=== PATIENT | male | born 1990 | race Two or more races ===

== ENCOUNTER 2018-12-04 21:02 | Inpatient (IN) | payer OTHER ==
--- NOTE | 2018-12-04 21:12 | ED ---
Neurological HPI - HPI Summary HPI Summary: This pt is a 28 y/o male [facility] for neurology consult after his knees gave out and pt fell this morning. Pt has hx of MS and has not been taking his QD injection medication since 2017. Pt is still taking gabapentin for MS. This morning pt's knees gave out falling on his buttocks and sliding down the stairs 12 steps down. He had head strike on the left side of his head. Denies LOC. Pt c/o pain to left side of head, bilateral leg pain, left arm pain. Denies pain to his neck or back. EMS arrived and assisted the pt off the floor and onto stretcher. Pt was taken to [facility] where he had a brain CT, cervical spine CT, hip and pelvis XR, femur XR , and left forearm XR and all resulted negative. Pt was transferred to [facility] ED for an MRI. Dr. Timmons is aware of pt coming to the ED. - History of Current Complaint Stated Complaint: NEURO PER EMS Hx Obtained From: Patient, Medical Records - from [facility] Onset/Duration: Started hours ago Timing: Sudden Onset Onset Severity: Moderate Neurological Deficit Location: RLE, LLE Character: Other: - knees gave out Aggravating: Unknown Alleviating: Unknown Associated Signs and Symptoms: Positive: Pain - bilateral leg pain, left arm pain, head pain. Negative: Loss of Consciousness, Fever Related Hx: Medication Non-Comliant - with hx of MS - Allergy/Home Medications Home Medications: Home Medications Albuterol HFA INHALER* [Ventolin HFA Inhaler*] 2 inh PO QID PRN 12/04/18 [ History Confirmed 12/04/18] Gabapentin 1,200 mg PO BID 12/04/18 [History Confirmed 12/04/18] Glatiramer Acetate [Glatopa] 20 mg SC DAILY 12/04/18 [History Confirmed 12/04/18 ] PMH/Surg Hx/FS Hx/Imm Hx Endocrine/Hematology History: Denies: Hx Diabetes Neurological History: Reports: Other Neuro Impairments/Disorders - MS - Family History Known Family History: Negative: Cardiac Disease, Hypertension - Social History Alcohol Use: None Substance Use Type: Reports: None Review of Systems Negative: Fever Musculoskeletal: Other - POSITIVE: left leg pain, right leg pain, left arm pain Negative: Other - NEGATIVE: neck pain or back pain Neurological: Other - POSITIVE: head pain All Other Systems Reviewed And Are Negative: Yes Physical Exam - Summary Physical Exam Summary: Appearance: The patient is well-nourished in no acute distress and in no acute pain. Skin: The skin is warm and dry. Abrasions on thighs. HEENT: The head is normocephalic and atraumatic. The pupils are equal and reactive. The conjunctivae are clear and without drainage. Nares are patent and without drainage. Mouth reveals moist mucous membranes and the throat is without erythema and exudate. The external ears are intact. The ear canals are patent and without drainage. The tympanic membranes are intact. Neck: the neck is supple with full range of motion and non-tender. There are no carotid bruits. There is no neck vein distension. Respiratory: Chest is non-tender. Lungs are clear to auscultation and breath sounds are symmetrical and equal. Cardiovascular: Heart is regular rate and rhythm. There is no murmur or rub auscultated. There is no peripheral edema and pulses are symmetrical and equal. Abdomen: The abdomen is soft and non-tender. There are normal bowel sounds heard in all four quadrants and there is no organomegaly palpated. Musculoskeletal: There is no back tenderness noted. Extremities are non-tender with full range of motion. Neurological: Patient is alert and oriented to person, place and time. The patient has symmetrical motor strength in all four extremities. Cranial nerves are grossly intact. Deep tendon reflexes are symmetrical and equal in all four extremities. Psychiatric: The patient has an appropriate affect and does not exhibit any anxiety or depression. Triage Information Reviewed: Yes Vital Signs On Initial Exam: Initial Vitals Temp Pulse Resp BP Pulse Ox 97.6 F 55 18 121/64 97 12/04/18 21:11 12/04/18 21:11 12/04/18 21:11 12/04/18 21:11 12/04/18 21:11 Vital Signs Reviewed: Yes Course/Dx - Course Course Of Treatment: Mr. Morton was stable on arrival from [place]. He was nontoxic in appearance although looked somewhat depressed. Dr. Sethi was contacted for the hospitalist. The plan is for Mr. Morton to get an MRI scan in the morning. - Diagnoses Provider Diagnoses: Multiple sclerosis exacerbation - Physician Notifications Discussed Care Of Patient With: Madi Sethi - hospitalist Time Discussed With Above Provider: 21:02 Instructed by Provider To: Admit As Inpatient Discharge - Sign-Out/Discharge Documenting (check all that apply): Patient Departure - Admit to [facility] Patient Received Moderate/Deep Sedation with Procedure: No - Discharge Plan Condition: Stable Disposition: ADMITTED TO [facility] Referrals: No Primary Care Phys,NOPCP [Primary Care Provider] - - Billing Disposition and Condition Condition: STABLE Disposition: Admitted to [facility] - Attestation Statements Document Initiated by Subhash: Yes Documenting Scribe: Evelin Proctor Provider For Whom Subhash is Documenting (Include Credential): Jase Bonner MD Scribe Attestation: Evelin Urias, scribed for Jase Bonner MD on 12/04/18 at 2152. Scribe Documentation Reviewed: Yes Provider Attestation: The documentation as recorded by the Evelin smith accurately reflects the service I personally performed and the decisions made by me, Jase Bonner MD Status of Scribe Document: Viewed
[2018-12-04] MEDS ORDERED: Senna TAB PO PRN (22:53)
[2018-12-04] MEDS ORDERED: Acetaminophen TAB* 325 MG PO PRN (22:53)
[2018-12-04] MEDS ORDERED: methylPREDNISolone 125 MG* 2 ML VIAL IV ONE (23:03)
[2018-12-04] MEDS ORDERED: Albuterol HFA INHALER* 8 gm MDI INH PRN (23:04)
[2018-12-04] MEDS ORDERED: methylPREDNISolone SOD SUCC* 1,000 MG in NS 0.9% 250 ML* 250 ML IVPB ONE (23:30)
[2018-12-05] MEDS: Ketorolac INJ* 15 MG/ML 1 ML VIAL IV PUSH PRN ×3 (01:39→18:12)
--- NOTE | 2018-12-05 05:00 | HP ---
AMENDED REPORT NOW INCLUDES DESIGNATED COSIGNER HISTORY AND PHYSICAL: DATE OF ADMISSION: 12/04/18 ATTENDING PHYSICIAN: Dr. Darrel Sethi * (dictated by DAVID Emery). OUTPATIENT NEUROLOGIST: Dr. Eli at [facility]. PRIMARY CARE PROVIDER: Dr. Malcolm at [facility] [place]. CHIEF COMPLAINT: Weakness x3 days and fall. HISTORY OF PRESENT ILLNESS: Kalen Morton is a 28-year-old white male with past medical history significant for asthma and MS, who presented to the emergency department in [place] due to a fall down 12 steps. The patient reports that he has been feeling progressively weak in his lower extremities, worsening over the last 3 days, which led to a fall down the staircase when he felt like his knees were buckling under him. There were other times in the last several days where his knees have been giving out under him. Due to lack of neurology coverage and MRI at [place], he was then transferred to the emergency department here at [facility]. The patient reports he did have a head trauma when he fell down the steps, but denies loss of consciousness. He felt like he was having some black spots in his vision, but that quickly resolved. He notes pain to his left hip and thigh and pain to his right knee since the fall. After the fall and leading up to his ED presentation, he denies difficulty breathing, fevers, chills, chest pain, loss of bowel or bladder control, abdominal pain, nausea, or vomiting. Over the last 3 days, he does endorse at times having some white spots in his vision and blurred vision. He states this happening intermittently and does not notice any relieving or aggravating events to these symptoms. He additionally states that he has not been taking his prescribed MS medications since either May or June of this year including glatiramer, vitamin B-complex, and vitamin D supplements. In the emergency room at [facility], the patient reportedly had a CT brain, CT cervical spine, x-ray of left forearm, x-ray of hips, x-ray of pelvis, and x-ray of bilateral femurs, which were reportedly read by the radiologist as negative. Lab data from the emergency department in [place], white blood cell count 5.9, hemoglobin 15.4, hematocrit 45.5, platelets 341, eosinophils 7.9, glucose 97, BUN 13, creatinine 0.9. Sodium 140, potassium 4.0 , chloride 106, carbon dioxide 26, calcium 9, magnesium 1.9, protein 8.1, albumin 4.3, globulin 3.8, bilirubin 0.6, AST 27, ALT 31, alk phos 61. Urinalysis negative with urine pH of 6.0. At this facility, the patient arrived to the emergency department with vital signs of temp 97.6, heart rate 55 , respiratory rate 18, oxygen saturation 97% on room air, and blood pressure of 121/64. The emergency department physician Dr. Packer contacted neurologist manager social responsibility, Dr. Timmons, who recommended admission. Therefore, the hospitalist team was contacted for evaluation for admission. PAST MEDICAL HISTORY: 1. Multiple sclerosis. 2. Asthma. 3. Environmental allergies. 4. Depression/anxiety. PAST SURGICAL HISTORY: 1. Adenoidectomy. 2. Tonsillectomy. HOME MEDICATIONS: 1. Gabapentin 1200 mg p.o. t.i.d. 2. Vitamin B supplement (nonadherent). 3. Vitamin D supplement (nonadherent). 4. Ventolin inhaler 2 puffs inhaled q.i.d. p.r.n. wheezing and shortness of breath. 5. Glatiramer 20 mg subcu daily (nonadherent). ALLERGIES: No known drug allergies. FAMILY HISTORY: Mother with asthma, is living in her 50s. Father is known to be healthy. The patient notes his paternal grandfather has had 2 strokes and an IN. SOCIAL HISTORY: The patient is with 2 children and 1 step-child. He lives with his and children in [place], [place]. He works at [employer]. He endorses occasional marijuana use. He has smoked cigarettes for approximately 1 year but now vapes, and denies alcohol use. REVIEW OF SYSTEMS: An 11-point review of systems was complete and all pertinent positives and negatives are above in the HPI. All other systems are negative. PHYSICAL EXAMINATION GENERAL: Thin, young white male, lying upright in the hospital bed, appearing comfortable in no acute distress. Mother at bedside. HEENT: Head: Normocephalic, atraumatic. Minimal tenderness to palpation to the left parietal region. Eyes: PERRL. Sclerae anicteric. EOMI. Visual acuity 20/20. No nystagmus. Visual shah full to confrontation. ENT: Mucous membranes are moist. NECK: Supple without JVD. LUNGS: Clear to auscultation throughout. CARDIO: Regular rate and rhythm without murmurs, rubs, or gallops. ABDOMEN: Normoactive bowel sounds x4 quadrants. No hepatosplenomegaly. Soft, nontender, nondistended. EXTREMITIES: No clubbing, cyanosis, or edema. MUSCULOSKELETAL: Range of motion to bilateral knees, ankles full. No tenderness to palpation throughout. No tenderness to palpation of spinous processes of cervical spine, thoracic spine or lumbar spine. Range of motion of neck is within normal limits. NEUROLOGIC: 5/5 strength in all extremities including belt measurer strength, dorsiflexion, plantar flexion, hip and knee flexion and extension, and elbow flexion and extension. Sensation to light touch diminished to left lower extremity and right upper extremity per the patient. Face is symmetrical. Sensation to light touch intact and equal throughout face. Gait is slow but within normal limits. Peripheral weakness with tip toe walk and duck walk. The patient is able to squat. Negative Romberg sign. The patient is alert and oriented x3. Minimal ataxia in lower extremities with heel-malagon. No ataxia with [id number]. SKIN: Diffuse mild ecchymosis to left lateral thigh. Otherwise, warm, dry, and intact. DIAGNOSTIC STUDIES/LAB DATA: No lab data was collected in the emergency department at this facility, but please see above for lab data collected at [facility]. As described above, the imaging was read as negative and the disk from [place] has been obtained. EKG obtained in [place]: Normal sinus rhythm at 55 beats per minute, isolated T- wave inversion in V1, otherwise no ST depressions or elevations. ASSESSMENT AND PLAN: Kalen Morton is a 28-year-old white male with past medical history significant for MS and asthma, who presents to the emergency department with 3 days of progressive weakness and a fall. The patient will be admitted in [facility] for: 1. Progressive weakness. This is likely due to a multiple sclerosis exacerbation. Dr. Timmons has been notified regarding this patient. He recommends MRI of the brain with and without contrast and MRI of the cervical spine with and without contrast. He additionally recommends 1 g of Solu-Medrol to be administered. He will evaluate the patient in the morning. The patient does exhibit some peripheral strength deficits on his neurological exam. He will be admitted to the medical floor. He has not been adherent to his home multiple sclerosis medications. I will hold his prescribed glatiramer at this point, further restart to be determined by Dr. Timmons. It would be beneficial to have records from his outpatient neurologist's office and I have placed an order to obtain records. 2. Fall. The patient reportedly fell down approximately 12 steps. He does endorse head trauma and reportedly his CT brain and cervical spine and x-rays of the hips, pelvis, bilateral femurs, and left forearm were negative at [place]. These images will be uploaded to our EMS. The patient does still have some pain in his left hip and right knee. I will give p.r.n. Tylenol and p.r.n. Toradol for this. I have ordered Physical Therapy to evaluate the patient. Otherwise, his pain does seem tolerable at this point. His fall appears to be secondary to his weakness, which is likely due to multiple sclerosis exacerbation. 3. History of asthma. Continue his p.r.n. Ventolin. 4. FEN: The patient will have a regular unrestricted diet. Electrolytes are within normal limits. 5. DVT risk assessment: The patient has a DVT risk score of 0. I will order SCDs. 6. Code Status: The patient is a full code. TIME SPENT: Approximately 55 minutes was spent on this admission, approximately half this time was spent at bedside. This case has been reviewed with my attending Dr. Darrel Sethi, and he agrees with this assessment and plan of care. DAVID EMERY [id number]/[facility] #: [id number] [facility] HOSPITALMaribell
[2018-12-05 06:43] LABS: ABS Lymphocytes 0.8 10^3/ul (1.0-4.8); ABS Monocytes 0.1 10^3/ul (0-0.8); Eosinophil % 0.2 %; Hematocrit 45 % (42-52); Hemoglobin 15.7 g/dL (14.0-18.0); Lymphocyte % 10.1 %; Mean Corpuscular HGB Conc 35 g/dL (31-36); Mean Corpuscular Hemoglobin 30 pg (27-31); Mean Corpuscular Volume 86 fL (80-94); Mean Platelet Volume 7.6 fL (7.4-10.4); Nucleated Red Blood Cells % 0.1; Platelet Count 307 10^3/uL (150-450); Red Blood Count 5.21 10^6 /uL (4.18-5.48); Red Cell Distribution Width 13 % (10-15); White Blood Count 7.9 10^3/uL (3.5-10.8)
[2018-12-05 07:02] LABS: Albumin 4.4 g/dL (3.2-5.2); Albumin/Globulin Ratio 1.5 (1-3); BUN/Creatinine Ratio 18.4 (8-20); Calcium 9.9 mg/dL (8.6-10.3); EGFR African American 108.7 (>60); EGFR Non-African American 89.8 (>60); Potassium 3.9 mmol/L (3.5-5.0); Total Bilirubin 0.9 mg/dL (0.2-1.0); Total Protein 7.4 g/dL (6.4-8.9)
[2018-12-05 07:22] LABS: TSH (Thyroid Stimulating Horm) 0.6 mcIU/mL (0.34-5.60)
[2018-12-05] MEDS: Gabapentin CAP(*) 400 MG PO SCH ×4 (08:50→21:58)
[2018-12-05] MEDS ORDERED: Gadoteridol* (CONTRAST) 279.3 MG/ML 10 ML IV ONE (11:41)
--- NOTE | 2018-12-05 12:35 | CONS ---
CC: Dr. Malcolm; Dr. Eli * CONSULTATION REPORT: DATE OF CONSULT: 12/05/18 PRIMARY CARE PROVIDER: Dr. Malcolm at [facility]. PRIMARY NEUROLOGIST: Dr. Eli at [facility]. MY ATTENDING PHYSICIAN IN THE HOSPITAL: Dr. Aaron Timmons (report dictated by Scooter Sharpe NP). REASON FOR NEUROLOGICAL CONSULTATION: Evaluation of weakness, possible MS flare. CHIEF COMPLAINT: 1. Weakness. 2. Fall. HISTORY OF PRESENTING ILLNESS: Mr. Morton is a 28-year-old male patient who is diagnosed with MS about 10 years ago. He initially was started on Avonex and then transferred over to glatiramer. He says that he has not taken the shot of his glatiramer since May. On his initial presentation of MS, he had significant visual symptoms. He was, per him, diagnosed with optic neuritis. He states that he has had 2 other flares for his MS history requiring IV steroids in the past and hospitalization. He states that he has also at times been forgetful taking his medications and he admitted that he has not taken his glatiramer due to the injection site pain since May. He came into our hospital from [facility] yesterday complaining of having a 3-day history of weakness affecting mostly his right lower extremity, which is typical he says of his flares. He says his right leg is always a little bit weaker than his left. He normally does have numbness and tingling. He does not elicit that with this flare. He says that he has also been having some white spots and black spots in his visions at times. It has been intermittent and at times , he has been having some blurry vision but no loss of vision at this point. He states that over the last 3 days, his right leg has been giving out more. He has been feeling progressively weaker over the last 3 days. He took a fall yesterday. He was trying to go down from stairs when he went to put his right leg down on the stair and it had given out and he fell. At that point, he states that he was concerned and he presented to [facility] ER. He denied having any back pain. No bowel or bladder control issues. No loss of bowel or bladder control. He does state that he has had some intermittent bladder issues over the last year, but no new incontinences have been reported. He denies having any pain at this point. He says when he fell he did not lose consciousness. He denied having any other weaknesses in his upper extremity. He denied any weakness in his face. No numbness or tingling in his face. He does state that over the last month, he has been feeling very fatigued and feeling as if he has been having a hard time concentrating. There was concern at [facility] that this could represent an MS flare. They were unable to obtain MRIs at that point. Dr. Timmons was consulted last night and it was felt that he should be transferred to [facility], where there was inpatient Neurology and where the patient could undergo MRI scanning and Neurology consult. Because of this, we were asked to evaluate and consult. PAST MEDICAL HISTORY: Significant for: 1. MS, diagnosed about 10 years ago. 2. Optic neuritis. 3. Asthma. 4. Depression. 5. Anxiety. PAST SURGICAL HISTORY: He has had a history of tonsillectomy and adenoidectomy. CURRENT MEDICATIONS: Include: 1. Vitamin D 1000 units p.o. daily. 2. Vitamin B one tablet daily. 3. Gabapentin 1200 mg p.o. t.i.d. 4. Glatiramer 20 mg subcu daily. 5. Albuterol 2 puffs inhaled q.i.d. as needed. ALLERGIES TO MEDICATIONS: Include no known drug allergies. FAMILY HISTORY: His mother has asthma. His father is healthy. SOCIAL HISTORY: He is . He has 3 children; 1 stepson, 2 daughters. Does not drink alcohol. He does use of a vape pen. Denies any illicit drug use. He works at [employer]. REVIEW OF SYSTEMS: There is no documented fever. He denied having any significant weight change. There was no double vision. He denies having any ear discharge. Denies having any rhinorrhea. There is no sore throat, no thyroid enlargement. Denied having any chest pain. There is no orthopnea. No nocturnal dyspnea. There is no abdominal pain. No nausea, no vomiting. No dysuria, no frequency. No seizure, no loss of consciousness. No pruritus and no skin ulcerations. Review of 14 systems completed, all others negative. PHYSICAL EXAM: Vital Signs: Blood pressure 105/50, pulse 51, respirations 16, his O2 saturation was 96%, temperature 97.9. General: At this time, Mr. Morton is a 28- year-old male patient, he is sitting in the hospital bed. He does not appear to be in any acute distress. He appears to be well nourished and well developed. HEENT: Head is atraumatic and normocephalic. Eyes: His EOMs were intact. His sclerae were anicteric and not pale. Neck: Supple. Throat: Oral mucosa appears to be dry. No oropharyngeal erythema. Heart: Sounds S1, S2. No murmurs, rubs, or gallops. Regular rate and rhythm. Lungs: Clear to auscultation bilaterally. No wheezes, rales, or rhonchi. Abdomen: Soft, flat , and nontender. Bowel sounds are present. Extremities: He had no edema. Pulses were 2+ throughout. Neurologically, again he is awake, he is alert, he is oriented x3. Again, pupils were equal and reactive to light. EOMs were intact. Visual shah were intact to confrontation. He had no nystagmus. His face was symmetric bilaterally. Sensation was intact bilaterally. Hearing was intact bilaterally. His palate was symmetric. Tongue was midline. His SCM and trapezius were 5/5 strength. He had no noted at this point. On motor exam, he did have 5/5 strength in the upper extremities with normal tone and bulk. He had 5/5 strength at the triceps, biceps and 5/5 strength bilaterally with finger abduction and adduction. The lower extremities had 5/5 strength with plantar and dorsiflexion, leg extension, leg flexion and at the hip flexor on the left lower extremity. However, on the right lower extremity at plantar flexion, he was 3/5; with dorsiflexion, he was 3/5; with leg extension 4/5, leg flexion 4/5; with the hip flexor, he was 4/5. He had normal bulk and tone to the lower extremities. Sensation: Again, at the upper extremities was intact bilaterally to light touch. The lower extremities was intact bilaterally to light touch. Deep tendon reflexes: He was 3+ at the ankle, 3+ at the patella, 3+ at the biceps, 3+ at the triceps and he was 3+ at the brachioradialis. Eventually that was going down. [id number] was intact bilaterally. Gait: I had him walk with a walker. There is noted weakness and mild circumduction to the right lower extremity. His Romberg was negative. Skin: Grossly intact. DIAGNOSTIC STUDIES/LAB DATA: He had a WBC of 7.9, RBC of 5.21, hemoglobin 15.7 , hematocrit of 45, platelet count of 307. His sodium was 138, potassium was 3.9, chloride of 105, bicarb 25, BUN 18, creatinine 0.98, glucose 175, calcium 9.9. Total bili 0.9, AST 23, ALT 22, alk phos 53. TSH was normal. He had several imaging studies in an outside hospital, which all I have the reports available to me at this point. We are attempting to get the CD loaded. EKG, sinus bradycardia with incomplete right bundle-branch block, rate of 55, no previous for comparison. CT brain without IV contrast was negative again per report. Pelvis 2 views negative per report. Femur x-ray again negative per report. Forearm x-ray negative per report and cervical spine CT negative per report. Old medical records were reviewed. ASSESSMENT AND PLAN: Mr. Morton is a 28-year-old male patient coming in to [facility] with complaint of progressive lower extremity weakness bilaterally with the fall yesterday. The weakness has been going on for 3 days. On exam today, he is notably weak in his right lower extremity. He does have some hyperreflexia but it is bilateral and equal. He was admitted for concerns of a multiple sclerosis flare. My recommendations going forward are: 1. Multiple sclerosis with presumable flare. At this point, he did receive 1 dose of Solu-Medrol. He is due to go for his MRIs of the brain and cervical spine at 10 o'clock this morning, which I agree with. We are doing this with and without contrast. If there is evidence of flare on MRI imaging, then I certainly would continue with Solu-Medrol 1 g IV for minimally 3 days. Also, it would be helpful to get records from his neurologist, which has been requested by the primary team already. Long-term, he will need to go back on possibly his Copaxone or another MS agent, but I would defer that to his primary neurologist. I would recommend physical therapy and occupational therapy evaluations for the patient and again, we will await further recommendations for the MRI. 2. Asthma, appears to be stable. We will defer to primary team. 3. Depression and anxiety. Continue with supportive care. Defer to primary team. 4. DVT prophylaxis. Defer to the primary team. 5. Code status. Full code. 6. Fluids, electrolytes, nutrition. He can have a regular diet. TIME SPENT ON CONSULT: Sixty minutes; greater than half the time was spent face -to- face with the patient obtaining my history and physical, other half the time was spent going over the plan of care with the patient. I did discuss the plan of care with my attending, Dr. Timmons; he was in agreement. SCOOTER SHARPE, STEM SETTER [id number]/[facility] #: [id number] [place]
[2018-12-05] MEDS: Cholecalciferol TAB* 1000 UNITS PO SCH (12:37)
[2018-12-05] MEDS: Vitamin B Complex TAB PO SCH (12:37)
--- NOTE | 2018-12-05 15:17 | PN ---
Subjective Date of Service: 12/05/18 Interval History: Discussed plan with Petey Sharpe [employer]. Per MRI results patient will need Solumdrol 1 gram daily for at least today and tomorrow. Assessed patient as bedside. Discussed MRI results and plan with patient who stated understanding. We also discussed medication compliance and patient states he initially (back in May or June) kept forgetting to take him medications and then he forgot so much he completely forget to take them at all. Patient reports bilateral leg pain which he attributes to fall and MS. Report bilateral knee pain with right worse than left which again he attributes to MS. He denies visual change, headache, dizziness, weakness. Objective Active Medications: Acetaminophen (Tylenol Tab*) 650 mg PO Q4H PRN PRN Reason: FEVER/PAIN Albuterol (Ventolin Hfa Inhaler*) 2 puff INH QID PRN PRN Reason: WHEEZING Cholecalciferol (Vitamin D Tab*) 1,000 units PO DAILY [facility] Last Admin: 12/05/18 12:37 Dose: 1,000 units Gabapentin (Neurontin Cap(*)) 1,200 mg PO BID [facility] Last Admin: 12/05/18 08:50 Dose: 1,200 mg Methylprednisolone Sodium Succinate 1,000 mg/ Sodium Chloride 250 mls @ 250 mls /hr IVPB DAILY [facility] Stop: 12/07/18 15:29 Ketorolac Tromethamine (Toradol Inj*) 15 mg IV PUSH Q6H PRN PRN Reason: PAIN Last Admin: 12/05/18 12:36 Dose: 15 mg Senna (Senokot Tab*) 1 tab PO BID PRN PRN Reason: CONSTIPATION Vitamin B Complex/Vitamin E (B Complex-50*) 1 tab PO DAILY [facility] Last Admin: 12/05/18 12:37 Dose: 1 tab Vital Signs - 8 hr 12/05/18 12/05/18 12/05/18 07:15 08:00 08:50 Temperature 97.6 F Pulse Rate 60 Respiratory 16 16 16 Rate Blood Pressure 98/47 (mmHg) O2 Sat by Pulse 94 Oximetry 12/05/18 12/05/18 12:25 12:38 Temperature 97.0 F Pulse Rate 65 Respiratory 12 18 Rate Blood Pressure 113/62 (mmHg) O2 Sat by Pulse 97 Oximetry Oxygen Devices in Use Now: None Appearance: Comfortable, NAD Eyes: No Scleral Icterus, PERRLA Ears/Nose/Mouth/Throat: Clear Oropharnyx, Mucous Membranes Moist Neck: NL Appearance and Movements; NL JVP Respiratory: Symmetrical Chest Expansion and Respiratory Effort, Clear to Auscultation Cardiovascular: NL Sounds; No Murmurs; No JVD, RRR, No Edema Abdominal: NL Sounds; No Tenderness; No Distention Lymphatic: No Cervical Adenopathy Extremities: No Edema, No Clubbing, Cyanosis Skin: No Rash or Ulcers Neurological: Alert and Oriented x 3, NL Muscle Strength and Tone Nutrition: Taking PO's Result Diagrams: 12/05/18 06:29 12/05/18 06:29 Additional Lab and Data: Laboratory Results - last 24 hr 12/05/18 12/05/18 06:29 06:29 WBC 7.9 RBC 5.21 Hgb 15.7 Hct 45 MCV 86 MCH 30 MCHC 35 RDW 13 Plt Count 307 MPV 7.6 Neut % (Auto) 88.6 Lymph % (Auto) 10.1 [place] % (Auto) 0.8 Eos % (Auto) 0.2 Baso % (Auto) 0.3 Absolute Neuts (auto) 7.0 Absolute Lymphs (auto) 0.8 L Absolute Monos (auto) 0.1 Absolute Eos (auto) 0.0 Absolute Basos (auto) 0.0 Absolute Nucleated RBC 0.0 Nucleated RBC % 0.1 Sodium 138 Potassium 3.9 Chloride 105 Carbon Dioxide 25 Anion Gap 8 BUN 18 Creatinine 0.98 Est GFR ( Amer) 108.7 Est GFR (Non-Af Amer) 89.8 BUN/Creatinine Ratio 18.4 Glucose 175 H Calcium 9.9 Total Bilirubin 0.90 AST 23 ALT 22 Alkaline Phosphatase 53 Total Protein 7.4 Albumin 4.4 Globulin 3.0 Albumin/Globulin Ratio 1.5 TSH 0.60 Microbiology and Other Data: . Diagnostic Imaging: COMPARISONS: MRI of the brain dated December 05, 2018 FINDINGS: BRAIN AND SPINAL CORD: As noted on the MRI of the brain, there is a lesion of the cervicomedullary junction. Additionally, there is a 0.4 cm focus of elevated T2 signal within the left cervical cord opposite of C3. There is a 0.4 cm lesion of the left cervical cord opposite of C5. There is a 0.2 cm lesion of the anterior cervical cord centrally opposite of C6-C7. There is a 0.3 cm lesion of the right posterior cervical cord opposite of C7-T1. There is no appreciable associated abnormal enhancement. ALIGNMENT: There is straightening of the normal cervical lordosis. The alignment is otherwise normal. VERTEBRAL BODIES: The bones are normal in signal intensity. JOINTS: There is no subluxation or dislocation. MUSCULATURE: Unremarkable. INTERVERTEBRAL DISCS: The intervertebral discs are normal in height and T2 signal AXIAL IMAGES: C2-C3: There is no disc herniation, spinal stenosis, or neuroforaminal narrowing. C3-C4: There is no disc herniation, spinal stenosis, or neuroforaminal narrowing. C4-C5: There is no disc herniation, spinal stenosis, or neuroforaminal narrowing. C5-C6: There is no disc herniation, spinal stenosis, or neuroforaminal narrowing. C6-C7: There is no disc herniation, spinal stenosis, or neuroforaminal narrowing. C7-T1: There is no disc herniation, spinal stenosis, or neuroforaminal narrowing. SOFT TISSUES: The visualized soft tissues of the neck are unremarkable. OTHER: None. IMPRESSION: 1. THERE ARE MULTIPLE LESIONS OF THE CERVICAL CORD CONSISTENT WITH DEMYELINATING PLAQUE GIVEN THE HISTORY OF MULTIPLE SCLEROSIS. 2. THERE IS NO ASSOCIATED ABNORMAL ENHANCEMENT TO SUGGEST ACTIVE INFLAMMATION. Order Information: MRI BRAIN W/WO FINDINGS: HEMORRHAGE/INFARCT: There is no hemorrhage or acute infarct. MASSES/SHIFT: There is no mass or shift. EXTRA-AXIAL SPACES/MENINGES: There are no extra-axial fluid collections. SULCI AND VENTRICLES: The sulci and ventricles are normal in size and position for the patient's stated age. CEREBRUM: There is multifocal and confluent elevated T2/FLAIR signal in the periventricular and subcortical white matter, including lesions are perpendicular to the corpus callosum consistent with Levine's fingers. There is associated T1 signal abnormalities with multiple lesions. There is associated enhancement scattered throughout the cerebral hemispheres bilaterally associated with these lesions BRAINSTEM: There is elevated T2/FLAIR signal within the left cerebral peduncle, within the left anterior joaquina, and within the cerebellar peduncles bilaterally. There is a 0.8 x 0.7 x 1.2 cm lesion of the cervicomedullary junction to the left of midline. There is enhancement associated with the left cerebral peduncle lesion. CEREBELLUM: Elevated T2/FLAIR signal within the cerebral hemispheres bilaterally at the junction with the peduncles. There is minimal associated enhancement. The cerebellar tonsils are normal in size and position. SELLA: The sella is normal. PINEAL: The pineal region is clear. CP ANGLE/TEMPORAL BONES: The labyrinthine structures are grossly normal. VESSELS: Normal flow-voids are noted within the visualized vertebral vasculature. DIFFUSION ABNORMALITIES: There are no diffusion abnormalities. PARANASAL SINUSES/MASTOIDS: There is a mucous retention cyst of the right maxillary sinus. ORBITS: The orbits are unremarkable. BONES AND SOFT TISSUE: No bone or soft tissue abnormalities are noted. OTHER: None IMPRESSION: 1. THERE ARE EXTENSIVE WHITE MATTER LESIONS THROUGHOUT THE CEREBRAL HEMISPHERES , BRAINSTEM, AND CEREBELLUM MOST CONSISTENT WITH DEMYELINATING PLAQUE GIVEN THE HISTORY OF MULTIPLE SCLEROSIS. 2. THERE IS ENHANCEMENT ASSOCIATED WITH MANY OF THESE LESIONS CONSISTENT WITH ACTIVE INFLAMMATION. Assess/Plan/Problems-Billing Assessment: 28 yr old with hx of MS who presented to ED with weakness and falls - Patient Problems (1) Multiple sclerosis Comment: - MRI consistent with MS exacerbation per Neurology, therefore, recommending Solumedrol 1 gram daily for today or tomorrow then reassess - Discussed restarting other MS medications and we will hold off at this point as he is in a exacerbation (2) Fall Comment: - Reported to have fallen down 12 steps. - Imaging negative. - Physical therapy evaluating. - Cont Toradol and Tylenol - Neuro checks Q 4 given reported head injury with no LOC (3) Asthma Comment: - Cont Ventolin prn for sob and wheezing (4) Depression Comment: - Has hx of depression and anxiety - Currently on no home medication for this, therefore, patient should follow up with PCP (5) DVT prophylaxis Comment: - SCDs Status and Disposition: Inpatient for IV steroids. Attending: Adelina Akers
[2018-12-05] MEDS ORDERED: Acetaminophen TAB* 325 MG PO PRN (15:28)
[2018-12-05] MEDS: methylPREDNISolone SOD SUCC* 1,000 MG in NS 0.9% 250 ML* 250 ML IVPB SCH (16:17)
[2018-12-06] MEDS: Ketorolac INJ* 15 MG/ML 1 ML VIAL IV PUSH PRN ×3 (00:14→16:47)
--- NOTE | 2018-12-06 09:13 | PN ---
Subjective Date of Service: 12/06/18 Length of Stay: 2 Days Interval History: Pt examined today at the bedside. He states that he is feeling a little better. He states that his vision has improved. He states he still feels weak in the right leg. He denies chest pain and denies shortness of breathe. Review of Systems: Denied CP, SOB, or palpitations. Objective Active Medications: Acetaminophen (Tylenol Tab*) 650 mg PO Q4H PRN PRN Reason: FEVER/PAIN Albuterol (Ventolin Hfa Inhaler*) 2 puff INH QID PRN PRN Reason: WHEEZING Cholecalciferol (Vitamin D Tab*) 1,000 units PO DAILY [facility] Last Admin: 12/05/18 12:37 Dose: 1,000 units Gabapentin (Neurontin Cap(*)) 1,200 mg PO TID [facility] Last Admin: 12/05/18 21:58 Dose: 1,200 mg Methylprednisolone Sodium Succinate 1,000 mg/ Sodium Chloride 250 mls @ 250 mls /hr IVPB DAILY [facility] Stop: 12/07/18 15:29 Last Admin: 12/05/18 16:17 Dose: 250 mls/hr Ketorolac Tromethamine (Toradol Inj*) 15 mg IV PUSH Q6H PRN PRN Reason: PAIN Last Admin: 12/06/18 00:14 Dose: 15 mg Senna (Senokot Tab*) 1 tab PO BID PRN PRN Reason: CONSTIPATION Vitamin B Complex/Vitamin E (B Complex-50*) 1 tab PO DAILY [facility] Last Admin: 12/05/18 12:37 Dose: 1 tab Vital Signs 12/05/18 12/05/18 12/05/18 12:25 12:38 15:15 Temperature 97.0 F 98.1 F Pulse Rate 65 95 Respiratory 12 18 18 Rate Blood Pressure 113/62 121/51 (mmHg) O2 Sat by Pulse 97 97 Oximetry 12/05/18 12/05/18 12/05/18 16:13 18:04 19:13 Temperature 98.1 F Pulse Rate 85 Respiratory 16 18 20 Rate Blood Pressure 116/60 (mmHg) O2 Sat by Pulse 97 Oximetry 12/05/18 12/05/18 12/05/18 19:27 21:58 22:50 Temperature 98.2 F Pulse Rate 93 Respiratory 18 18 18 Rate Blood Pressure 103/42 (mmHg) O2 Sat by Pulse 96 Oximetry 12/06/18 12/06/18 12/06/18 00:00 02:00 07:15 Temperature 97.7 F 97.5 F Pulse Rate 92 87 Respiratory 18 18 16 Rate Blood Pressure 122/48 100/42 (mmHg) O2 Sat by Pulse 97 97 Oximetry Intake and Output Last 24 Hours 12/04/18 12/05/18 12/06/18 12/07/18 06:59 06:59 06:59 06:59 Intake Total 100 3140 Balance 100 3140 Weight 158 lb 4.8 oz 158 lb 4.8 oz Intake: IV Fluids 60 NS (0.9%) 30 IVPB 520 Solu-medrol 260 Oral 100 2560 Other: Estimated Void Medium # Bowel Movements 1 Estimated Stool Amount Small # Voids 1 Oxygen Devices in Use Now: None Neurology Exam: General: Well nourished, well developed, and in no acute distress HEENT: Normocephelic/atraumatic, sclera anicteric, mucous membranes moist Neck: Supple Chest: Clear to auscultation bilaterally Cardiovascular: Regular rate and rhythm without murmurs, rubs, gallops Abdomen: Soft, non-tender/non-distended Extremities: No clubbing, cyanosis, or edema Neurological Findings: Awake, alert, and oriented to person, place, and time. Speech: fluent without dysarthria, repetition intact Cranial Nerve: PERRL, EOM intact, VFF, no nystagmus, face symmetric bilaterally , facial sensation intact, hearing intact to finger rub bilaterally, palate elevates symmetrically, tongue midline, SCM and Trapezius 5/5. Motor: 5/5 proximal and distal in the upper extremities tone/bulk normal, lower extremities 4/5 at hip flexor right, leg extension and flexion 4/5 right leg, 4 /5 plantar and dorsifelxion, 5/5 strength throughout the LLE, Sensation: intact to LT bilaterally upper and lower extremities, decreased subjectively to the RLE Deep Tendon Reflex: 3+ symmetric in the lower extremities, 2 plus in the upper extremities Babinski - down going Finger to nose, rapid alternating movements intact without tremor, no dysdiadochokinesia Gait: mild circumducts the right leg, slightly wide based, Result Diagrams: 12/05/18 06:29 12/05/18 06:29 Additional Lab and Data: Laboratory Results - last 24 hr 12/05/18 12/05/18 06:29 06:29 WBC 7.9 RBC 5.21 Hgb 15.7 Hct 45 MCV 86 MCH 30 MCHC 35 RDW 13 Plt Count 307 MPV 7.6 Neut % (Auto) 88.6 Lymph % (Auto) 10.1 [place] % (Auto) 0.8 Eos % (Auto) 0.2 Baso % (Auto) 0.3 Absolute Neuts (auto) 7.0 Absolute Lymphs (auto) 0.8 L Absolute Monos (auto) 0.1 Absolute Eos (auto) 0.0 Absolute Basos (auto) 0.0 Absolute Nucleated RBC 0.0 Nucleated RBC % 0.1 Sodium 138 Potassium 3.9 Chloride 105 Carbon Dioxide 25 Anion Gap 8 BUN 18 Creatinine 0.98 Est GFR ( Amer) 108.7 Est GFR (Non-Af Amer) 89.8 BUN/Creatinine Ratio 18.4 Glucose 175 H Calcium 9.9 Total Bilirubin 0.90 AST 23 ALT 22 Alkaline Phosphatase 53 Total Protein 7.4 Albumin 4.4 Globulin 3.0 Albumin/Globulin Ratio 1.5 TSH 0.60 Microbiology and Other Data: . Diagnostic Imaging: COMPARISONS: MRI of the brain dated December 05, 2018 FINDINGS: BRAIN AND SPINAL CORD: As noted on the MRI of the brain, there is a lesion of the cervicomedullary junction. Additionally, there is a 0.4 cm focus of elevated T2 signal within the left cervical cord opposite of C3. There is a 0.4 cm lesion of the left cervical cord opposite of C5. There is a 0.2 cm lesion of the anterior cervical cord centrally opposite of C6-C7. There is a 0.3 cm lesion of the right posterior cervical cord opposite of C7-T1. There is no appreciable associated abnormal enhancement. ALIGNMENT: There is straightening of the normal cervical lordosis. The alignment is otherwise normal. VERTEBRAL BODIES: The bones are normal in signal intensity. JOINTS: There is no subluxation or dislocation. MUSCULATURE: Unremarkable. INTERVERTEBRAL DISCS: The intervertebral discs are normal in height and T2 signal AXIAL IMAGES: C2-C3: There is no disc herniation, spinal stenosis, or neuroforaminal narrowing. C3-C4: There is no disc herniation, spinal stenosis, or neuroforaminal narrowing. C4-C5: There is no disc herniation, spinal stenosis, or neuroforaminal narrowing. C5-C6: There is no disc herniation, spinal stenosis, or neuroforaminal narrowing. C6-C7: There is no disc herniation, spinal stenosis, or neuroforaminal narrowing. C7-T1: There is no disc herniation, spinal stenosis, or neuroforaminal narrowing. SOFT TISSUES: The visualized soft tissues of the neck are unremarkable. OTHER: None. IMPRESSION: 1. THERE ARE MULTIPLE LESIONS OF THE CERVICAL CORD CONSISTENT WITH DEMYELINATING PLAQUE GIVEN THE HISTORY OF MULTIPLE SCLEROSIS. 2. THERE IS NO ASSOCIATED ABNORMAL ENHANCEMENT TO SUGGEST ACTIVE INFLAMMATION. Order Information: MRI BRAIN W/WO FINDINGS: HEMORRHAGE/INFARCT: There is no hemorrhage or acute infarct. MASSES/SHIFT: There is no mass or shift. EXTRA-AXIAL SPACES/MENINGES: There are no extra-axial fluid collections. SULCI AND VENTRICLES: The sulci and ventricles are normal in size and position for the patient's stated age. CEREBRUM: There is multifocal and confluent elevated T2/FLAIR signal in the periventricular and subcortical white matter, including lesions are perpendicular to the corpus callosum consistent with Levine's fingers. There is associated T1 signal abnormalities with multiple lesions. There is associated enhancement scattered throughout the cerebral hemispheres bilaterally associated with these lesions BRAINSTEM: There is elevated T2/FLAIR signal within the left cerebral peduncle, within the left anterior joaquina, and within the cerebellar peduncles bilaterally. There is a 0.8 x 0.7 x 1.2 cm lesion of the cervicomedullary junction to the left of midline. There is enhancement associated with the left cerebral peduncle lesion. CEREBELLUM: Elevated T2/FLAIR signal within the cerebral hemispheres bilaterally at the junction with the peduncles. There is minimal associated enhancement. The cerebellar tonsils are normal in size and position. SELLA: The sella is normal. PINEAL: The pineal region is clear. CP ANGLE/TEMPORAL BONES: The labyrinthine structures are grossly normal. VESSELS: Normal flow-voids are noted within the visualized vertebral vasculature. DIFFUSION ABNORMALITIES: There are no diffusion abnormalities. PARANASAL SINUSES/MASTOIDS: There is a mucous retention cyst of the right maxillary sinus. ORBITS: The orbits are unremarkable. BONES AND SOFT TISSUE: No bone or soft tissue abnormalities are noted. OTHER: None IMPRESSION: 1. THERE ARE EXTENSIVE WHITE MATTER LESIONS THROUGHOUT THE CEREBRAL HEMISPHERES , BRAINSTEM, AND CEREBELLUM MOST CONSISTENT WITH DEMYELINATING PLAQUE GIVEN THE HISTORY OF MULTIPLE SCLEROSIS. 2. THERE IS ENHANCEMENT ASSOCIATED WITH MANY OF THESE LESIONS CONSISTENT WITH ACTIVE INFLAMMATION. Assessment/Plan Assessment: 28 yr old with hx of MS who presented to ED with weakness and falls MS with exacerbation Slight improved today. He is still weak in the RLE, would continue IV solumedrol, would recommend continued PT efforts. PMRU to eval. I agree with this. After steroid infusion completed, would continue copaxone as outpatient, He has follow up with is Neurologist on 12/16. I reviewed MRI brain and C spine he has extensive disease will obtain Tspine and L spine MRI, Recommend PMRU eval, PT efforts, will re-eval today to determine if he will need two more days of Iv solumderol,
[2018-12-06] MEDS: Cholecalciferol TAB* 1000 UNITS PO SCH (09:28)
[2018-12-06] MEDS: Gabapentin CAP(*) 400 MG PO SCH ×2 (09:28→13:55)
[2018-12-06] MEDS: methylPREDNISolone SOD SUCC* 1,000 MG in NS 0.9% 250 ML* 250 ML IVPB SCH (09:29)
[2018-12-06] MEDS: Vitamin B Complex TAB PO SCH (09:33)
[2018-12-06] MEDS ORDERED: Gadoteridol* (CONTRAST) 279.3 MG/ML 10 ML IV ONE (10:43)
[2018-12-06] MEDS ORDERED: methylPREDNISolone SOD SUCC* 1,000 MG in NS 0.9% 250 ML* 250 ML IVPB SCH (14:30)
[2018-12-06 15:46] VITALS: BP 131/60
--- NOTE | 2018-12-06 23:12 | DS ---
CC: Dr. Malcolm * DISCHARGE SUMMARY: DATE OF ADMISSION: 12/04/18 DATE OF DISCHARGE: 12/06/18 PRIMARY CARE PROVIDER: Dr. Malcolm in [place], [place]. ATTENDING PHYSICIAN: Dr. Akers * (dictated by Mecca Delaney NP). PRIMARY DIAGNOSES: 1. Progressive weakness. 2. Fall. 3. Multiple sclerosis. 4. Asthma. 5. Depression. CONSULTATIONS WHILE IN THE HOSPITAL: 1. Dr. Timmons, Neurology. 2. Petey Sharpe NP, Neurology. STUDIES WHILE IN THE HOSPITAL: 1. Brain MRI: Impression: There are extensive white matter lesions throughout the cerebral hemispheres, brain stem, and cerebellum, most consistent with demyelinating plaque given the history of multiple sclerosis. There is enhancement associated with many of these lesions consistent with active inflammation. 2. Cervical spine: Impression: There are multiple lesions on the cervical cord consistent with demyelinating plaque given the history of multiple sclerosis. There is no associated abnormal enhancement to suggest active inflammation. 3. Lumbar spine: Impression: Multiple lesions of thoracic cord and conus, most consistent with demyelinating plaque given the history of multiple sclerosis. There is no associated abnormal enhancement to suggest active inflammation. There is no significant neural foraminal narrowing or central canal stenosis. 4. Thoracic spine MRI: Impression: Multiple lesions on the thoracic cord and conus, most consistent with demyelinating plaque given the history of multiple sclerosis. There is no associated abnormal enhancement to suggest active inflammation. There is no significant neural foraminal narrowing or central canal stenosis. DISCHARGE MEDICATIONS: Continued home medications: 1. Vitamin D 1000 units p.o. daily. 2. Vitamin B complex 1 tab p.o. daily. 3. Gabapentin 1200 mg p.o. t.i.d. 4. Glatopa 20 mg subcu daily. 5. Ventolin 2 inhalations p.o. 4 times a day p.r.n. [place] Medication: No new home medications. Changed home medications: No changed home medications. Discontinued home medications: No discontinued home medications. HISTORY OF PRESENT ILLNESS/HOSPITAL COURSE: Mr. Morton is a 28-year-old male with a past medical history significant for multiple sclerosis, depression, and asthma, who presented to the emergency department on 12/04/18, after weakness x3 days and reported fall down on staircase. Please see history and physical dictated by DAVID Emery, for complete summary of the events leading up to the hospitalization. It should be noted that the patient was seen in [facility] prior to his presentation to our emergency room and had a brain CT, cervical spine CT, x-ray of the forearm, x-ray of the hip, x-ray of pelvis, x-ray of bilateral femurs and were reported and read by radiologist as negative. Given that [facility] did not have Neurology on board, the patient was transferred here. When he arrived to our facility, Dr. Timmons was contacted, who recommended admission. During this hospitalization, the patient has received IV steroids in the form of Solu-Medrol. The patient received 1 g of Solu-Medrol on 12/04/18, 12/05/18, 12/06/18. The patient was also evaluated by physical therapy, occupational therapy, and speech therapy. The patient's symptoms improved with this treatment of Solu-Medrol. Dr. Timmons and Petey Sharpe NP, from Neurology re- evaluated the patient today and deemed the patient safe for discharge home with close followup. The patient is stable for discharge home today. Vital Signs: Temp 97.4, HR 77, RR 16, O2 saturation 98% on room air, BP 131/60. REVIEW OF SYSTEMS: A 14-point review of systems was completed and all were negative. PHYSICAL EXAMINATION: General: Mr. Morton is a 28-year-old male, who is sitting in bed. Appears to be in no acute distress. Appears stated age. HEENT : EOMs intact. PERRLA. Oral mucosa is moist without lesion. Posterior oropharynx is clear. Neck: Supple. No lymphadenopathy. Respiratory: Lungs are clear to auscultation. No wheezes, rhonchi or rubs. Good aeration. Cardiac: S1 and S2 present. No murmurs, rubs, or gallops. Abdomen: Soft and nontender. Bowel sounds normoactive. Extremities: No edema. No clubbing or cyanosis. Pedal pulses are 2+ bilaterally. Musculoskeletal: No pain or deformities. Skin: Grossly intact. Neuro: Neuro exam is grossly intact. No focal deficits or weakness. DIAGNOSTIC STUDIES/LAB DATA: WBC 9.7, hemoglobin 15.7, hematocrit 45, platelets 307. Sodium 139, potassium 3.9, chloride 105, carbon dioxide 25, BUN 18, creatinine of 0.98, TSH 0.60. DISCHARGE PLAN/FOLLOWUP: 1. Progressive weakness: We suspect the patient's progressive weakness is likely due to his multiple sclerosis exacerbation. It should also be mentioned that the patient has not been compliant with his medications since approximately May or June. He reports this is not intentional as he just often forgets to take it. As mentioned above, the patient has been receiving steroids and his weakness has improved. It should be noted that the patient on his initial assessment by physical therapy noted to have good strength and movement to stand, but loses his balance backwards to the right when standing. He also had poor balance. He had difficulty with eye turn, head turn, and downward gaze, maintaining balance. After the patient's treatment with steroids today, he was reassessed and is documented that the patient had improvement through all areas since the assessment on 12/05/18 except that his balance becomes impaired with downward and side glance but overall his stability had improved. The patient will be following up with Petey Sharpe NP, Neurology on 12/15/18, at 1 p.m. at the [facility] location. 2. Multiple sclerosis: Please see above. 3. Fall: We suspect that this is secondary to the patient's multiple sclerosis exacerbation due to noncompliance. The patient has improved with steroids. The patient has been educated by physical therapy on ways to prevent falls. 4. Asthma: The patient should continue home medications of Ventolin. 5. Depression: The patient has a history of depression and anxiety, but is not currently on medications. I would recommend he follow up with his primary care regarding this. 6. Followup: As mentioned above, the patient has a scheduled appointment with Petey Sharpe NP, with Neurology on 12/15/18 at [facility] Inpatient assessment by physical therapy, occupational therapy, and speech therapy was noted that the patient would benefit from speech assessment and treatment as an outpatient. He is agreeable to this. I would recommend the patient's primary care provider to provide a referral and the patient prefers to come [place] [facility] [place] [facility]. I would also recommend that the patient follow up with his primary care in 1 to 3 days. 7. Education: The patient is educated on signs and symptoms of any worsening condition and when to return to the emergency department. The patient stated understanding. This is a summarized report of a complex medical history and hospital stay. For further details, please see entire medical record. TIME SPENT: Approximately 35 minutes was spent on this discharge, greater than half of that time was spent [id number] with the patient, discussing discharge plans and instructions. This plan was also discussed with my attending, Dr. Akers, who is in agreement with my plan of care. MECCA DELANEY, JUSTINO [id number]/CPS #: [id number] [place]
== END 2018-12-06 18:20 | disposition home or self-care (01) | DRG 43 ==
LOC: ED 21:02 → MED 22:53 → OBSVTOIN 12-05 12:00
PROVIDERS: ADMIT Internal Medicine; ATTEND Internal Medicine
DX: G35 Multiple sclerosis (principal); J45.909 Unspecified asthma, uncomplicated; W10.8XXA Fall (on) (from) other stairs and steps, initial encounter; F32.9 Major depressive disorder, single episode, unspecified; F41.9 Anxiety disorder, unspecified; Z91.048 Other nonmedicinal substance allergy status; Z82.49 Family history of ischemic heart disease and other diseases of the circulatory system; Y92.009 Unspecified place in unspecified non-institutional (private) residence as the place of occurrence of the external cause; Z82.3 Family history of stroke; Z82.5 Family history of asthma and other chronic lower respiratory diseases; Z72.0 Tobacco use; Z91.14 Patient's other noncompliance with medication regimen
CPT/HCPCS: 36415; 70553; 72156; 72157; 72158; 80053; 84443; 85025; 94640; 99284; A9270-GY; A9579; G0378; G8978-GP-CK; G8979-GP-CI; J1885; J2930